=== PATIENT | male | born 1995 | race Two or more races ===

== ENCOUNTER 2021-08-28 15:54 | Emergency (ER) | payer MEDICAID, OTHER | END 2021-08-28 17:36 | disposition left against medical advice (07) | LOC: ER 15:54 | DX: Z04.3 Encounter for examination and observation following other accident (principal); Z53.21 Procedure and treatment not carried out due to patient leaving prior to being seen by health care provider; W19.XXXA Unspecified fall, initial encounter; Y93.89 Activity, other specified; Y92.89 Other specified places as the place of occurrence of the external cause; Y99.8 Other external cause status ==

== ENCOUNTER 2024-05-12 14:42 | Emergency (ER) | payer SELFPAY ==
[~2024-05-12] VITALS: Ht 167.6 cm; Wt 72.0 kg
--- NOTE | 2024-05-12 15:32 | ED.PDOC ---
HPI Allergic reaction HPI Comments A 29 YEAR OLD MALE PRESENTS TO THE ED WITH CHIEF COMPLAINT OF ALLERGIC REACTION. PATIENT REPORTS THAT HE HAS BEEN EXPERIENCING LEFT LOWER LIP SWELLING WITH ASSOCIATED RASH TO HIS BILATERAL ARMS AND LEGS SINCE TODAY. PATIENT RELAYS THAT HE HAD EATEN SHRIMP 4 DAYS AGO, NOTING THAT IS THE ONLY NEW THING HE HAS EATEN. PATIENT DENIES ANY CHEST PAIN, SOB, DIZZINESS, THROAT SWELLING, OR N/V. NO OTHER SYMPTOMS REPORTED AT THIS TIME OF CARE. Chief Complaint: Allergic Reaction Time Seen by MD: 15:28 Primary Care Provider: NONE Reviewed Notes: Nurses Notes, Medications, Allergies Allergies: Coded Allergies: NO KNOWN ALLERGIES (Unverified , 05/12/24) Home Meds Active Scripts Hydroxyzine Pamoate (Vistaril) 25 Mg Cap, 1 CAP PO BID, #24 CAP Prov:CAREY PAYNE 05/12/24 Methylprednisolone (Medrol Dosepak) 4 Mg Manjeet, 4 MG PO UD, #21 TAB UAD Prov:CAREY PAYNE 05/12/24 Information Source: Patient Mode of Arrival: Ambulatory Severity: Moderate Rash: Mild, Moderate SOB: None Difficulty swallowing: None Pruritus: Mild Timing: Days Duration: Since onset, Intermittent, Days Prehospital treatment: None Location: Arm, Leg, Lips Exposed to: Food Developed: Rash, Other (LEFT LOWER LIP SWELL) Modyifying Factors: Not Used Associated Sign and Symptoms: None Past Medical History PAST MEDICAL HISTORY: Denies Surgical History: Denies all surgeries Family History Family History: Reviewed,noncontributory to illness Social History Smoker: Non-Smoker Alcohol: Denies ETOH Use Drugs: Denies Drug Use Lives In: Home Constitutional: denies: chills, diaphoresis, fatigue, fever, malaise, sweats, weakness, others EENTM: reports: others (LEFT LOWER LIP SWELLING); denies: blurred vision, double vision, ear bleeding, ear discharge, ear drainage, ear pain, ear ringing, eye pain, eye redness, hearing loss, mouth pain, mouth swelling, nasal discharge, nose bleeding, nose congestion, nose pain, photophobia, tearing, throat pain, throat swelling, voice changes Respiratory: denies: cough, hemoptysis, orthopnea, SOB at rest, shortness of breath, SOB with excertion, stridor, wheezing, others Cardiovascular: denies: chest pain, dizzy spells, diaphoresis, Dyspnea on exertion, edema, irregular heart beat, left arm pain, lightheadedness, palpitations, PND, syncope, others Gastrointestinal: denies: abdomen distended, abdominal pain, blood streaked bowels, constipated, diarrhea, dysphagia, difficulty swallowing, hematemesis, melena, nausea, poor appetite, poor fluid intake, rectal bleeding, rectal pain, vomiting, others Genitourinary: denies: burning, dysuria, flank pain, frequency, hematuria, incontinence, penile discharge, penile sore, pain, testicle pain, testicle swelling, urgency, others Neurological: denies: dizziness, fainting, headache, left sided numbness, left sided weakness, numbness, paresthesia, pre-existing deficit, right sided numbness, right sided weakness, seizure, speech problems, tingling, tremors, w eakness, others Musculoskeletal: denies: back pain, gout, joint pain, joint swelling, muscle pain, muscle stiffness, neck pain, others Integumetry: reports: rash (TO ARMS AND LEGS); denies: bruises, change in color, change in hair/nails, dryness, laceration, lesions, lumps, wounds, others Allergic/Immunocompromised: denies: Difficulty Healing, Frequent Infections, Hives, Itching, others Hematologic/Lymphatic: denies: anemia, blood clots, easy bleeding, easy bruising, swollen glands, others Endocrine: denies: excessive hunger, excessive sweating, excessive thirst, excessive urination, flushing, intolerance to cold, intolerance to heat, unexplained weight gain, unexplained weight loss, others Psychiatric: denies: anxiety, bipolar disorder, depression, hopeless, panic disorder, schizophrenia, sleepless, suicidal, others All Other Systems: Reviewed and Negative Physical Exam General Appearance: No Apparent Distress, Normal HEENT: Normal ENT Inspection, PERRL/EOMI, Other (ERYTHEMA AND SWELLING ON LEFT LOWER LIP, NO INFECTION SIGNS. ) Neck: Full Range of Motion, Non-Tender, Normal, Normal Inspection Respiratory: Chest Non-Tender, Lungs Clear, No Accessory Muscle Use, No Respiratory Distress, Normal Breath Sounds Cardiovascular: No Edema, No JVD, No Murmur, No Gallop, Normal Peripheral Pulses, Regular Rate/Rhythm Breast Exam: Deferred Gastrointestinal: No Organomegaly, Non Tender, No Pulsatile Mass, Normal Bowel Sounds, Soft Genitalia: Deferred Pelvic: Deferred Rectal: Deferred Extremities: No calf tenderness, Normal capillary refill, Normal inspection, Normal range of motion, Non-tender, No pedal edema Musculoskeletal : Apperance: Normal Neurologic: Alert, auto transport driver II-XII nml as Tested, No Motor Deficits, Normal Affect, Normal Mood, No Sensory Deficits Cerebellar Function: Normal Reflexes: Normal Skin: Dry, Rash (ERYTHEMA SKIN RASH WITH HIVES ON HANDS AND THIGHS AND WRISTS, NO TENDERNESS AND SWELLING. ), Warm Peripheral Pulses: 2+ carotid (R), 2+ carotid (L) Lymphatic: No Adenopathy Was a procedure done? Was a procedure done?: No Differential diagnosis (all) Differential Diagnosis: Angioedema, Urticaria, Other (ALLERGIC REACTION ) X-Ray, Labs, Meds, VS Vital Signs Date Time Temp Pulse Resp B/P (MAP) Pulse Ox O2 Delivery O2 Flow Rate FiO2 05/12/24 15:34 66 16 99 Room Air 05/12/24 15:34 97.5 66 16 100/54 (69) 99 97.5 05/12/24 14:53 97.5 66 16 100/54 (69) 99 97.5 Current Medications Medications (Trade) Dose Ordered Sig/Kassandra Route Start Time Stop Time Status Last Admin Epinephrine HCl 0.3 mg ONCE ONCE SC 05/12/24 15:30 05/12/24 15:31 DC 05/12/24 15:50 Methylprednisolone Sodium Succinate (Solu Medrol) 125 mg ONCE ONCE IM 05/12/24 15:30 05/12/24 15:31 DC 05/12/24 15:50 X-Ray, Labs, Meds, VS Comment EXTERNAL MEDICAL RECORDS REVIEWED: [NONE] INDEPENDENT HISTORIANS: [NONE] SOCIAL DETERMINANTS OF HEALTH: [NONE] LABS ORDERED: NONE REVIEWED AND INTERPRETED RESULTS: NONE IMAGING ORDERED: NONE TREATMENTS ORDERED: 0.3MG EPINEPHRINE SC, SOLU-MEDROL 125MG IM PROCEDURES PERFORMED: NONE CRITICAL CARE TIME: NONE I HAVE DISCUSSED THE PATIENT WITH THE ATTENDING PHYSICIAN DR. HILL AND HE AGREES WITH THE PATIENT'S PLAN OF CARE AND DISPOSITION. BASED ON HISTORY OF PRESENT ILLNESS, AND PHYSICAL EXAM, PATIENT WILL BE DISCHARGED HOME. DISCUSSED PLAN FOR DISCHARGE HOME WITH RX PREDNISONE. MEDICATION WARNINGS GIVEN. SHARED DECISION MAKING: DISCUSSED WITH PATIENT THAT THEIR WORKUP WAS NORMAL. PATIENT INSTRUCTED TO FOLLOW UP WITH PRIMARY CARE PROVIDER IN 1-2 DAYS FOR RE- EVALUATION OF SYMPTOMS. PATIENT VERBALIZES UNDERSTANDING TO RETURN TO ED FOR NEW OR WORSENING SYMPTOMS OR IF FOLLOW UP WITH PCP CANNOT BE OBTAINED. PATIENT FEELS COMFORTABLE GOING HOME AT THIS TIME. ALL QUESTIONS ADDRESSED AT TIME OF DISCHARGE. Time of 1ST Reevaluation: 16:00 Reevaluation 1ST: Improved Patient Education/Counseling: Diagnosis, Treatment, Need For Follow Up Family Education/Counseling: Diagnosis, Treatment, No Family Present Medical Screening: No EMC Exist At This Time Departure 1 Departure Time of Disposition: 16:01 Impression: Primary Impression: Allergic reaction Qualified Codes: T78.40XA - Allergy, unspecified, initial encounter Disposition: HOME / SELF CARE / HOMELESS Condition: Stable Additional Instructions: FOLLOW-UP WITH PCP IN 1 TO 2 DAYS. TAKE MEDICATIONS PRESCRIBED. RETURN TO ED FOR ANY NEW OR WORSENING SYMPTOMS. e-Prescriptions Hydroxyzine Pamoate (Vistaril) 25 Mg Cap 1 CAP PO BID, #24 CAP Prov: CAREY PAYNE 05/12/24 Methylprednisolone (Medrol Dosepak) 4 Mg Manjeet 4 MG PO UD, #21 TAB UAD Prov: CAREY PAYNE 05/12/24 Discharged With: Self Critical Care Note Critical Care Time?: No Stability Stability form required: No Heart Score Heart Score: Heart Score Response (Comments) Value History N/A 0 EKG N/A 0 Age N/A 0 Risk Factors N/A 0 Troponin N/A 0 Total 0 I personally scribed for CAREY PYANE ([email or web address]) on 05/12/24 at 15:32. Electronically submitted by Jeff Jang ([email or web address]). CAREY PAYNE May 12, 2024 15:32
[2024-05-12 15:34] VITALS: BP 100/54; PULSE 66; RESP 16; TEMP 97.5; O2SAT 99
[2024-05-12] MEDS ORDERED: METH4PAK PO (15:47)
[2024-05-12] MEDS ORDERED: HYDR25CA PO (15:48)
[2024-05-12] MEDS: methylPREDNISolone SOD SUCC 125 MG/2 ML VL IM ONE (15:50)
[2024-05-12] MEDS: EPINEPHrine HCL 1 MG/1 ML AMP SC ONE (15:50)
== END 2024-05-12 16:17 | disposition home or self-care (01) ==
LOC: ER 14:42
DX: T78.40XA Allergy, unspecified, initial encounter (principal); Z79.899 Other long term (current) drug therapy; Y92.89 Other specified places as the place of occurrence of the external cause
CPT/HCPCS: 96372; 99284; J0171; J2919